=== PATIENT | male | born 2000 | race Caucasian/White ===

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

== ENCOUNTER 2020-08-28 09:51 | Outpatient (RCR) | payer OTHER | END 2020-11-26 | disposition home or self-care (01) | LOC: CARD 09:51 | PROVIDERS: ATTEND Nurse Practitioner Family | DX: R00.2 Palpitations (principal) | CPT/HCPCS: 93225; 93226 ==

== ENCOUNTER → 2020-09-25 | Outpatient (CLI) | payer OTHER | LOC: CARD 11:12 | PROVIDERS: ATTEND Internal Medicine Cardiovascular Disease | DX: I36.1 Nonrheumatic tricuspid (valve) insufficiency (principal) | CPT/HCPCS: 93306 ==

== ENCOUNTER → 2020-10-21 | Outpatient (CLI) | payer OTHER ==
[2020-10-21 10:42] VITALS: BP 100/56
--- NOTE | 2020-10-21 16:56 | Cardiology Stress Test Report ---
Stress Test Report Date of Procedure/Referring: Date of Procedure: Oct 21, 2020 PCP Deyanira Klein Admitting Physician Breanna Calvillo MD Indications: CP Baseline Heart Rate: 50 Baseline Blood Pressure: Blood Pressure Systolic: 100 Blood Pressure Diastolic: 56 Baseline EKG: Baseline EKG: NSR Summary/Conclusion: Summary: In summary, the patient started exercising with a baseline heart rate, blood pressure and EKG mentioned above Patient was able to exercise for a total of 11 minutes on Aaron protocol, METs 12.1 Maximum heart rate 178 Maximum blood pressure 196/54 Stress EKG, Minimal nondiagnostic changes Recovery EKG , Return to baseline Conclusion: 1. Good exercise tolerance for a total of 11 minutes on Aaron protocol, 12.1 METs, achieving 88 percent of maximum expected heart rate 2. Minimal nondiagnostic EKG changes with exercise returned to baseline during recovery 3. No arrhythmia was noted LYNDA GONZALEZ MD Oct 21, 2020 16:56
== END ==
LOC: CARD 10:17
PROVIDERS: ATTEND Physician Assistant
DX: R07.9 Chest pain, unspecified (principal); R00.2 Palpitations
CPT/HCPCS: 93017

== ENCOUNTER → 2021-09-22 | Outpatient (CLI) | payer OTHER ==
--- NOTE | 2021-09-22 16:46 | Diagnostic Imaging Report ---
EXAMINATION: Abdomen, 1 view. HISTORY: Left upper quadrant pain. COMPARISON: None available. FINDINGS: A large amount of stool is present in the colon. No dilated bowel or free air. IMPRESSION: No dilated bowel or free air. Dictated by: Dictated on workstation # [id number]
== END ==
LOC: RAD 16:10
PROVIDERS: ATTEND Nurse Practitioner Family
DX: R10.12 Left upper quadrant pain (principal)
CPT/HCPCS: 74018